=== PATIENT | male | born 1985 | race African-American/Black ===

== ENCOUNTER 2023-02-13 06:14 | Emergency (ER) | payer MEDICAID ==
[~2023-02-13] VITALS: Ht 185.4 cm; Wt 80.0 kg
[2023-02-13 06:17] VITALS: BP 117/71
[2023-02-13 06:46] LABS: BASOPHILS % 0.7 % (0.0-2.0); EOSINOPHILS % 5.2 % (0.0-5.0); HEMATOCRIT. 41.8 % (42.0-52.0); HEMOGLOBIN. 14.1 g/dL (14.0-18.0); LYMPHOCYTES % 40.7 % (20.0-50.0); MEAN CORPUSCULAR HEMOGLOBIN 30.2 pg (28.0-32.0); MEAN CORPUSCULAR VOLUME 89.6 fL (80.0-94.0); MEAN PLATELET VOLUME 10.6 fl (7.4-10.4); MONOCYTES % 8.1 % (2.0-8.0); NEUTROPHILS % 45.3 % (40.0-76.0); PLATELET 163 x1000/uL (130-400); RED BLOOD CELL COUNT 4.66 mill/uL (4.7-6.1)
[2023-02-13 06:51] LABS: CHLORIDE 107 mEq/L (98-107)
[2023-02-13 07:05] LABS: ETHANOL BLOOD < 10 mg/dL
[2023-02-13 08:07] LABS: CARBAMAZEPINE < 0.5 ug/mL (4-12)
== END 2023-02-13 08:08 | disposition home or self-care (01) ==
LOC: ER 06:14
DX: R56.9 Unspecified convulsions (principal)
CPT/HCPCS: 36415; 80053; 80156; 80165; 80185; 80320; 85025; 99283; G0480

== ENCOUNTER 2024-07-22 17:22 | Emergency (ER) | payer OTHER, MEDICAID ==
[~2024-07-22] VITALS: Ht 177.8 cm; Wt 82.0 kg
[2024-07-22 17:25] VITALS: TEMP 98.6; O2SAT 98
[2024-07-22 18:28] VITALS: BP 114/80; PULSE 82; RESP 18; O2SAT 97
== END 2024-07-22 18:37 | disposition home or self-care (01) ==
LOC: ER 17:22
DX: G40.909 Epilepsy, unspecified, not intractable, without status epilepticus (principal)
CPT/HCPCS: 99283; Z7610; A4663; A4606